=== PATIENT | male | born 1990 | race Caucasian/White ===

== ENCOUNTER 2016-03-25 13:54 | Emergency (ER) | payer SELFPAY ==
[2016-03-25 14:10] VITALS: BP 130/73
--- NOTE | 2016-03-25 14:50 | RAD ---
INDICATION: Right shoulder injury. TECHNIQUE: 3 views of the right shoulder were obtained. FINDINGS: The shoulder is unusually positioned although the humeral head appears to be located within the glenoid process of the scapula. There is mild chronic widening of the acromioclavicular joint and an old fracture fragment present inferior to the distal clavicle. No acute fracture is seen. IMPRESSION: LIMITED STUDY DUE TO POSITIONING, NO EVIDENCE FOR ACUTE FRACTURE OR DISLOCATION.
[2016-03-25] MEDS ORDERED: Morphine INJ* 4 MG/ML 1 ML CARPUJECT IV ONE ×2 (15:13→16:02)
[2016-03-25] MEDS ORDERED: Ondansetron INJ* 2 MG/ML VIAL IV ONE (15:13)
--- NOTE | 2016-03-25 17:08 | RAD ---
INDICATION: Right shoulder injury. COMPARISON: Comparison is made with a prior study obtained earlier today and a study from April 09, 2015. TECHNIQUE: 3 views of the right shoulder were obtained. FINDINGS: There is mild chronic widening of the acromioclavicular joint. The bones are otherwise in normal alignment. No fracture is seen. IMPRESSION: NO EVIDENCE FOR ACUTE FRACTURE OR DISLOCATION.
--- NOTE | 2016-03-25 17:38 | ED ---
Upper Extremity Pain - HPI Summary HPI Summary: Pt here w/ Rt shoulder pain s/p fall onto ice. Deformed and per pt, feels dislocated. He's had issues with this in the past and was told he needed surgery - this is the worse his shoulder has ever felt. Was following with Dr. Redman in [place] but stopped going as his shoulder felt better - never had surgery. Denies numbness, tingling, weakness. No neck or back pain but reports his scapula hurts. Did not hit his head or lose consciousness. No other injuries to report. - History of Current Complaint Chief Complaint: EDShoulderCVinod Stated Complaint: RT SHOULDER INJURY Time Seen by Provider: 03/25/16 14:23 Hx Obtained From: Patient - Allergies/Home Medications Allergies/Adverse Reactions: Allergies Allergy/AdvReac Type Severity Reaction Status Date / Time Ketorolac Tromethamine Allergy Severe Hives Verified 03/25/16 14:08 [From Toradol] Tramadol Allergy Severe Hives Verified 03/25/16 14:08 Erythromycin Allergy Intermediate Hives Verified 03/25/16 14:08 PMH/Surg Hx/FS Hx/Imm Hx Previously Healthy: Yes Endocrine/Hematology History: Denies: Hx Anticoagulant Therapy, Hx Blood Disorders, Hx Diabetes, Hx Thyroid Disease Cardiovascular History: Denies: Hx Congestive Heart Failure, Hx Deep Vein Thrombosis, Hx Hypertension , Hx Myocardial Infarction, Hx Pacemaker/ICD Respiratory History: Denies: Hx Asthma, Hx Chronic Obstructive Pulmonary Disease (COPD), Hx Lung Cancer, Hx Pneumonia, Hx Pulmonary Embolism GI History: Denies: Hx Gall Bladder Disease, Hx Gastrointestinal Bleed, Hx Ulcer, Hx Urosepsis History: Denies: Hx Kidney Stones, Hx Renal Disease Musculoskeletal History: Reports: Other Musculoskeletal History - Right AC separation, surgery recommended but declined at the time Sensory History: Denies: Hx Hearing Aid Neurological History: Denies: Hx Dementia, Hx Migraine, Hx Seizures, Hx Transient Ischemic Attacks (TIA) Psychiatric History: Denies: Hx Anxiety, Hx Depression, Hx Panic Disorder, Hx Schizophrenia, Hx Bipolar Disorder - Surgical History Surgery Procedure, Year, and Place: HERNIA SURGERY Infectious Disease History: No Infectious Disease History: Denies: Hx Clostridium Difficile, Hx Hepatitis, Hx Human Immunodeficiency Virus (HIV), Hx of Known/Suspected MRSA, Hx Shingles, Hx Tuberculosis, Traveled Outside the [place] in Last 30 Days - Family History Known Family History: Positive: None - no heart disease or DM Negative: Renal Disease, Blood Disorder - Social History 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 Lives: With Family Alcohol Use: None Hx Substance Use: No Substance Use Type: Reports: None Hx Tobacco Use: Yes Smoking Status (MU): Current Every Day Smoker Type: Cigarettes Amount Used/How Often: <1 PACK/WEEK Review of Systems Eyes: Negative Negative: Chest Pain Negative: Shortness Of Breath Positive: no symptoms reported Musculoskeletal: Other - see HPI Skin: Negative Neurological: Negative Psychological: Normal All Other Systems Reviewed And Are Negative: Yes Physical Exam Triage Information Reviewed: Yes Vital Signs On Initial Exam: Initial Vitals Temp Pulse Resp BP Pulse Ox 99.1 F 84 20 130/73 100 03/25/16 14:08 03/25/16 14:08 03/25/16 14:08 03/25/16 14:08 03/25/16 14:08 Vital Signs Reviewed: Yes Appearance: Positive: Well-Appearing, Well-Nourished, Pain Distress Skin: Positive: Warm, Dry - no erythema, no ecchymosis over affected area of Rt shoulder Head/Face: Positive: Normal Head/Face Inspection Eyes: Positive: Normal, EOMI ENT: Positive: Hearing grossly normal, Pharynx normal Respiratory/Lung Sounds: Positive: Breath Sounds Present Cardiovascular: Positive: Normal, Pulses are Symmetrical in both Upper and Lower Extremities Musculoskeletal: Positive: Other - Rt shoulder appears subluxed as there's a vast space between AC joint and head of humerus - this area and scapula and TTP - pt bracing arm next to body - will not move; Humerus, elbow, forearm and wrist /hand are NTTP and w/o deformity; moving fingers, wrist well reluctant to move elbow d/t shoulder pain Neurological: Positive: Normal, Sensory/Motor Intact, Alert, Oriented to Person Place, Time, CN Intact II-III Psychiatric: Positive: Normal, Anxious Procedures - Splinting Pre-Made Type: shoulder immobilizer Pre-Proc Neuro Vasc Exam: normal Post-Proc Neuro Vasc Exam: normal Diagnostics - Vital Signs Vital Signs Temp Pulse Resp BP Pulse Ox 03/25/16 16:34 18 03/25/16 15:36 18 03/25/16 14:08 99.1 F 84 20 130/73 100 - Laboratory Lab Statement: Any lab studies that have been ordered have been reviewed, and results considered in the medical decision making process. Re-Evaluation - Re-Evaluation First Eval Change: Unchanged - s/P 4MG MORPHINE Second Eval Change: Improved - S/P 4 MORE MG MORPHINE Course/Dx - Course Course Of Treatment: Pt's Rt shoulder appears deformed compared to Lt - no fx, no dislocation per XR. Pt reports h/o Rt shoulder issues. Suspect at least 2nd degree tear of connective tissue - pt placed in shoulder immobilizer, provided with pain medication and advised to f/u w/ ortho - explained he may benefit from an MRI. Reviewed danger s/sx of when to return. Pt voices understanding. - Diagnoses Provider Diagnoses: Right shoulder strain Discharge - Discharge Plan Condition: Stable Disposition: HOME Prescriptions: Ibuprofen TAB* [Motrin TAB* 800 MG] 800 mg PO Q8HR #20 tab oxyCODONE/Acetamin 5/325 MG* [Percocet 5/325 TAB*] 1 tab PO Q6H PRN #20 tab MDD 4 PRN Reason: Pain Patient Education Materials: How to Use a Sling (GEN), Shoulder Sprain (ED) Referrals: Feroz REECE,Epifanio Russell [Medical Doctor] - [facility] [Outside] Additional Instructions: Your XR does not reveal a fracture or dislocation today however you have sustained a shoulder sprain. This may be a partial or complete tear. You have been provided with a shoulder immobilizer - do not remove this until seen by orthopedic provider next week. Since you have seen Dr. Redman in the past for issues with this shoulder, call there tomorrow to schedule an appointment for early next week. You may benefit from an MRI. Rest, ice, and take ibuprofen with food as needed for pain. You also have a short supply of pain medication to help with breakthrough pain. This may cause constipation and drowsiness as well as habit forming properties. Take with caution and notify your provider if you need help with any of these side effects. *If you develop numbness, weakness in extremity prior to appointment with Dr. Redman, return to ED.
== END 2016-03-25 17:54 | disposition home or self-care (01) ==
LOC: ED 13:54
DX: S46.811A Strain of other muscles, fascia and tendons at shoulder and upper arm level, right arm, initial encounter (principal); W00.0XXA Fall on same level due to ice and snow, initial encounter; Y92.9 Unspecified place or not applicable; F17.210 Nicotine dependence, cigarettes, uncomplicated
CPT/HCPCS: 96374; 96375; 96376; 99282; J2270; J2405

== ENCOUNTER 2016-08-10 12:37 | Emergency (ER) | payer SELFPAY ==
[2016-08-10] MEDS ORDERED: HYDROmorphone* 1 MG/ML 1 ML SYR IV ONE (13:31)
[2016-08-10] MEDS ORDERED: NS 0.9% 1000 ML* 1,000 ML IV ONE (13:31)
[2016-08-10 14:08] LABS: Hematocrit 50 % (42-52); Mean Corpuscular HGB Conc 34 g/dl (31-36); Mean Corpuscular Hemoglobin 30 pg (27-31); Mean Corpuscular Volume 90 fL (80-94); Mean Platelet Volume 9 um3 (7.4-10.4); Red Blood Count 5.57 10^6/ul (4.0-5.4); Red Cell Distribution Width 14 % (10.5-15); White Blood Count 9.6 10^3/ul (3.5-10.8)
[2016-08-10 14:21] LABS: Albumin 4.9 g/dL (3.2-5.2); BUN/Creatinine Ratio 14.3 (8-20); Calcium 9.8 mg/dL (8.6-10.3); EGFR Non-African American 110.5 (>60); Globulin 2.8 g/dL (2-4); Potassium 3.8 mmol/L (3.5-5.0); Total Protein 7.7 g/dL (6.4-8.9)
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
--- NOTE | 2016-08-10 15:12 | RAD ---
INDICATION: Right shoulder injury. TECHNIQUE: 4 views of the right shoulder were obtained. FINDINGS: The bones are normal alignment. There is a faint radiolucent line which projects across the superior portion of the glenoid process of the scapula possibly representing a nondisplaced fracture. This is only seen on one view. Joint spaces appear maintained. IMPRESSION: POSSIBLE NONDISPLACED FRACTURE OF THE SCAPULA.
[2016-08-10] MEDS ORDERED: HYDROmorphone* 1 MG/ML 1 ML SYR IV SLOW PU ONE (15:40)
[2016-08-10] MEDS ORDERED: Iohexol 300* (CONTRAST) 10 ML SDV IV ONE (15:44)
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
[2016-08-10 18:01] VITALS: BP 125/62
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
== END 2016-08-10 17:50 | disposition home or self-care (01) ==
LOC: ED 12:37
DX: S13.9XXA Sprain of joints and ligaments of unspecified parts of neck, initial encounter (principal); S06.0X0A Concussion without loss of consciousness, initial encounter; S16.1XXA Strain of muscle, fascia and tendon at neck level, initial encounter; S43.004A Unspecified dislocation of right shoulder joint, initial encounter; M25.511 Pain in right shoulder; V86.59XA Driver of other special all-terrain or other off-road motor vehicle injured in nontraffic accident, initial encounter; Y93.9 Activity, unspecified; Y92.9 Unspecified place or not applicable; Y99.9 Unspecified external cause status
CPT/HCPCS: 36415; 70450; 71260; 72125; 72128; 74177; 80053; 83605; 85025; 96374; 96376; 99282; J1170; Q9967

== ENCOUNTER 2017-10-19 17:34 | Emergency (ER) | payer SELFPAY ==
[2017-10-19 17:40] VITALS: BP 101/60
--- NOTE | 2017-10-19 20:58 | ED ---
Skin Complaint - HPI Summary HPI Summary: Pt. is a 26-year-old male who presents emergency department for a rash to his arms and legs x 2 days. 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 He states rash is pruritic. Denies associated symptoms of fevers, chills, nausea, vomiting. Symptoms are mild in severity. Touching rest makes symptoms worse. Nothing makes symptoms better. Denies past medical history. - History of Current Complaint Chief Complaint: EDRashSkinAbscess Time Seen by Provider: 10/19/17 19:07 Stated Complaint: RASH Hx Obtained From: Patient Pain Intensity: 1 Pain Scale Used: 0-10 Numeric - Allergy/Home Medications Allergies/Adverse Reactions: Allergies Allergy/AdvReac Type Severity Reaction Status Date / Time ketorolac Allergy Severe Hives Verified 10/19/17 19:54 tramadol Allergy Severe Hives Verified 10/19/17 19:54 erythromycin base Allergy Intermediate Hives Verified 10/19/17 19:54 PMH/Surg Hx/FS Hx/Imm Hx Previously Healthy: Yes Endocrine/Hematology History: Denies: Hx Anticoagulant Therapy, Hx Blood Disorders, Hx Diabetes, Hx Thyroid Disease Cardiovascular History: Denies: Hx Congestive Heart Failure, Hx Deep Vein Thrombosis, Hx Hypertension , Hx Myocardial Infarction, Hx Pacemaker/ICD Respiratory History: Denies: Hx Asthma, Hx Chronic Obstructive Pulmonary Disease (COPD), Hx Lung Cancer, Hx Pneumonia, Hx Pulmonary Embolism GI History: Denies: Hx Gall Bladder Disease, Hx Gastrointestinal Bleed, Hx Ulcer, Hx Urosepsis History: Denies: Hx Kidney Stones, Hx Renal Disease Musculoskeletal History: Reports: Other Musculoskeletal History - Right AC separation, surgery recommended but declined at the time Sensory History: Denies: Hx Hearing Aid Neurological History: Denies: Hx Dementia, Hx Migraine, Hx Seizures, Hx Transient Ischemic Attacks (TIA) Psychiatric History: Denies: Hx Anxiety, Hx Depression, Hx Panic Disorder, Hx Schizophrenia, Hx Bipolar Disorder - Surgical History Surgery Procedure, Year, and Place: HERNIA SURGERY Infectious Disease History: No Infectious Disease History: Denies: Hx Clostridium Difficile, Hx Hepatitis, Hx Human Immunodeficiency Virus (HIV), Hx of Known/Suspected MRSA, Hx Shingles, Hx Tuberculosis, Traveled Outside the [place] in Last 30 Days - Family History Known Family History: Positive: None - no heart disease or DM Negative: Renal Disease, Blood Disorder - Social History Occupation: Employed Full-time Lives: With Family Alcohol Use: None Hx Substance Use: No Substance Use Type: Reports: None Hx Tobacco Use: Yes Smoking Status (MU): Current Every Day Smoker Type: Cigarettes Amount Used/How Often: <1 PACK/WEEK Review of Systems Constitutional: Negative Negative: Fever, Chills Positive: Rash All Other Systems Reviewed And Are Negative: Yes Physical Exam Triage Information Reviewed: Yes Vital Signs On Initial Exam: Initial Vitals Temp Pulse Resp BP Pulse Ox 98.2 F 93 18 101/60 98 10/19/17 17:36 10/19/17 17:36 10/19/17 17:36 10/19/17 17:36 10/19/17 17:36 Vital Signs Reviewed: Yes Appearance: Positive: Well-Appearing - Pt. sitting on bed in NAD. S.O. present. Skin: Positive: Warm, Dry, Other - Numerous honey crusted areas to lower legs and arms noted. No induration or fluctuance. No vesicles. Head/Face: Positive: Normal Head/Face Inspection Eyes: Positive: Normal, EOMI Neck: Positive: Supple Neurological: Positive: Normal, CN Intact II-III Psychiatric: Positive: Affect/Mood Appropriate Diagnostics - Vital Signs Vital Signs Temp Pulse Resp BP Pulse Ox 10/19/17 17:36 98.2 F 93 18 101/60 98 - Laboratory Lab Statement: Any lab studies that have been ordered have been reviewed, and results considered in the medical decision making process. Course/Dx - Course Course Of Treatment: Pt. presents for rash. 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 Rash is most consistent with impetigo. Bactroban ointment prescribed. Advised patient to wash all clothing and material the may been in contact with hot soapy water. Keep areas clean and dry. To follow-up with PCP for recheck if rash is not improving. Patient understands and agrees with plan. - Differential Diagnoses - Skin Complaint Differential Diagnoses: Allergic Reaction, Contact Dermatitis, Drug Rash, Eczema , Impetigo, Poison [place], Scabies - Diagnoses Provider Diagnoses: Impetigo Discharge - Sign-Out/Discharge Documenting (check all that apply): Patient Departure - Discharge Plan Condition: Good Disposition: HOME Prescriptions: Mupirocin 2% OINT* [Bactroban 2 % Oint*] 1 applic TOPICAL BID #60 tube Patient Education Materials: Impetigo (ED) Referrals: Armando REECE,Igor Jefferson [Primary Care Provider] - Additional Instructions: Schedule a follow up appointment with PCP if rash persist Use cream as directed Clean areas with warm soap and water Wash all clothing and material that may have contacted rash in hot, soapy water Can take benadryl or an over the counter antihistamine for itching Return to ER if symptoms change or worsen - Billing Disposition and Condition Condition: GOOD Disposition: Home
[2017-10-19] MEDS ORDERED: Mupirocin 2% OINT* TUBE TOPICAL SCH (21:00)
== END 2017-10-19 20:24 | disposition home or self-care (01) ==
LOC: ED 17:34
DX: L01.00 Impetigo, unspecified (principal); R21 Rash and other nonspecific skin eruption; F17.210 Nicotine dependence, cigarettes, uncomplicated
CPT/HCPCS: 99281

== ENCOUNTER 2018-11-13 22:20 | Emergency (ER) | payer OTHER ==
[2018-11-13 22:29] VITALS: BP 115/92
== END 2018-11-14 00:30 | disposition left against medical advice (07) ==
LOC: ED 22:20
DX: K08.89 Other specified disorders of teeth and supporting structures (principal); Z53.21 Procedure and treatment not carried out due to patient leaving prior to being seen by health care provider
CPT/HCPCS: 99281

== ENCOUNTER 2019-01-29 15:39 | Emergency (ER) | payer MEDICAID, OTHER ==
[2019-01-29] MEDS ORDERED: Albuterol 2.5 MG/3 ML NEB.SOL* (0.083%) INH ONE (17:50)
--- NOTE | 2019-01-29 18:08 | ED ---
Respiratory - HPI Summary HPI Summary: 28 year old male presents with with cough for the past couple days. He states that he was sick about a month ago with a cough and was treated with antibiotic but cough persisted slightly even with antibiotics. States that over the past couple days the cough has gotten worse and he's been coughing nonstop. He states that his family is also sick with cold-like symptoms. He admits to sinus congestion. No sore throat. Admits to some postnasal drip. He is a smoker. - History of Current Complaint Chief Complaint: EDGeneral Stated Complaint: COUGHING UP BLOOD/SOB PER PT Time Seen by Provider: 01/29/19 17:39 Pain Intensity: 4 - Allergy/Home Medications Allergies/Adverse Reactions: Allergies Allergy/AdvReac Type Severity Reaction Status Date / Time ketorolac Allergy Severe Hives Verified 11/13/18 22:24 tramadol Allergy Severe Hives Verified 11/13/18 22:24 erythromycin base Allergy Intermediate Hives Verified 11/13/18 22:24 PMH/Surg Hx/FS Hx/Imm Hx Endocrine/Hematology History: Denies: Hx Anticoagulant Therapy, Hx Blood Disorders, Hx Diabetes, Hx Thyroid Disease Cardiovascular History: Denies: Hx Congestive Heart Failure, Hx Deep Vein Thrombosis, Hx Hypertension , Hx Myocardial Infarction, Hx Pacemaker/ICD Respiratory History: Denies: Hx Asthma, Hx Chronic Obstructive Pulmonary Disease (COPD), Hx Lung Cancer, Hx Pneumonia, Hx Pulmonary Embolism GI History: Denies: Hx Gall Bladder Disease, Hx Gastrointestinal Bleed, Hx Ulcer, Hx Urosepsis History: Denies: Hx Kidney Stones, Hx Renal Disease Musculoskeletal History: Reports: Other Musculoskeletal History - Right AC separation, surgery recommended but declined at the time Sensory History: Denies: Hx Hearing Aid Neurological History: Denies: Hx Dementia, Hx Migraine, Hx Seizures, Hx Transient Ischemic Attacks (TIA) Psychiatric History: Denies: Hx Anxiety, Hx Depression, Hx Panic Disorder, Hx Schizophrenia, Hx Bipolar Disorder - Surgical History Surgery Procedure, Year, and Place: HERNIA SURGERY Infectious Disease History: No Infectious Disease History: Denies: Hx Clostridium Difficile, Hx Hepatitis, Hx Human Immunodeficiency Virus (HIV), Hx of Known/Suspected MRSA, Hx Shingles, Hx Tuberculosis, Traveled Outside the [place] in Last 30 Days - Family History Known Family History: Positive: None - no heart disease or DM Negative: Renal Disease, Blood Disorder - Social History Alcohol Use: None Hx Substance Use: No Substance Use Type: Reports: None Hx Tobacco Use: Yes Smoking Status (MU): Current Every Day Smoker Type: Cigarettes Amount Used/How Often: <1 PACK/WEEK Review of Systems Negative: Fever Negative: Chest Pain Positive: Shortness Of Breath, Cough Negative: Abdominal Pain All Other Systems Reviewed And Are Negative: Yes Physical Exam Triage Information Reviewed: Yes Vital Signs On Initial Exam: Initial Vitals Temp Pulse Resp BP Pulse Ox 97.9 F 100 19 109/75 100 01/29/19 15:44 01/29/19 15:44 01/29/19 15:44 01/29/19 15:44 01/29/19 15:44 Vital Signs Reviewed: Yes Appearance: Positive: Well-Appearing Skin: Positive: Warm, Dry Head/Face: Positive: Normal Head/Face Inspection Eyes: Positive: Normal, EOMI, JIMMY, Conjunctiva Clear ENT: Positive: Pharynx normal, TMs normal Respiratory/Lung Sounds: Positive: Clear to Auscultation, Breath Sounds Present Cardiovascular: Positive: Normal, RRR Abdomen Description: Positive: Nontender, Soft Bowel Sounds: Positive: Present Musculoskeletal: Positive: Normal Neurological: Positive: Normal Psychiatric: Positive: Normal Procedures - Sedation Patient Received Moderate/Deep Sedation with Procedure: No Diagnostics - Vital Signs Vital Signs Temp Pulse Resp BP Pulse Ox 01/29/19 15:44 97.9 F 100 19 109/75 100 - Laboratory Lab Statement: Any lab studies that have been ordered have been reviewed, and results considered in the medical decision making process. Disposition - Diagnoses Provider Diagnoses: Bronchitis Discharge ED - Sign-Out/Discharge Documenting (check all that apply): Patient Departure - Discharge Plan Condition: Good Disposition: HOME Prescriptions: guaiFENesin/CODIENE 100mg/10mg [Robitussin AC 100Mg/10Mg in 5 ml] 5 ml PO Q6H PRN #100 ml MDD 20ml PRN Reason: Cough predniSONE TAB* [Deltasone TAB*] 50 mg PO DAILY #4 tab Patient Education Materials: Acute Bronchitis (ED) Forms: *Work Release Referrals: Armando REECE,Igor Jefferson [Primary Care Provider] - Additional Instructions: Take cough medication 5ml (1 teaspoon) every 6 hours as needed cough Use inhaler up to two puffs every 4-6 hours for cough Take steroid once a day starting tomorrow Use saline in the nose for nasal congestion, can also get Sudafed at pharmacy counter for nasal congestion Take Tylenol or ibuprofen for pain every 6 hours follow up with primary within 5 days Return to ED if develop any new or worsening symptoms - Billing Disposition and Condition Condition: GOOD Disposition: Home
[2019-01-29] MEDS ORDERED: A lbuterol Hfa (PREPAK) 1 MDI - ED TAKE HOME DISPENSING ONLY INHH ONE (18:14)
[2019-01-29 18:30] VITALS: BP 118/80
== END 2019-01-29 18:30 | disposition home or self-care (01) ==
LOC: ED 15:39
DX: J40 Bronchitis, not specified as acute or chronic (principal); F17.210 Nicotine dependence, cigarettes, uncomplicated; Z88.6 Allergy status to analgesic agent; Z88.1 Allergy status to other antibiotic agents; Z88.5 Allergy status to narcotic agent
CPT/HCPCS: 71046; 99282; A9270-GY; J7512